=== PATIENT | female | born 1995 | race Hispanic/Latino ===

== ENCOUNTER 2025-04-19 16:18 | Emergency (ER) | payer BC ==
[~2025-04-19 16:18] MED LIST: Iopamidol 370 76% 100 ML VIAL ONE
[2025-04-19] MEDS ORDERED: Ondansetron PF 4 MG/2 ML Vial ONE ×2 (16:36→17:03)
[2025-04-19 16:47] LABS: #Basophils 0.1 thou/uL (0.0-0.2); #Eosinophils 0.2 thou/uL (0.0-0.7); #Lymphocytes 2.6 thou/uL (1.20-3.40); #Monocytes 0.6 thou/uL (0.11-0.59); #Neutrophils 7.6 thou/uL (1.40-6.50); %Basophils 1.0 % (0.0-1.0); %Eosinophils 1.7 % (0.0-10.0); %Lymphocytes 23.3 % (21.0-51.0); %Monocytes 5.1 % (0.0-10.0); %Neutrophils 69.0 % (42.0-75.0); Hematocrit 44.0 % (36.0-47.0); Hemoglobin 14.3 g/dL (12.0-16.0); Mean Corpuscular Hemoglobin 28.8 pg (27.0-31.0); Mean Corpuscular Volume 89.1 fl (78.0-98.0); Platelet Count 262 10x3/uL (130-400); Red Blood Cell (RBC) Count 4.94 mill/uL (4.20-5.40); White Blood Cell (WBC) Count 11.0 10x3/uL (4.8-10.8)
[2025-04-19 16:58] LABS: BHCG - Serum Negative (NEGATIVE); Pregs Control Background? CLEAR/WHITE (CLR/WHITE); Pregs Control Bar Appear? YES (CONTROL BAR)
[2025-04-19 17:02] LABS: ALT (SGPT) 39 U/L (Less than 34); AST (SGOT) 41 U/L (11-34); Albumin 4.3 g/dL (3.1-4.5); Alkaline Phosphatase 84 U/L (40-110); Anion Gap 20 mmol/L (10-20); BUN (Urea Nitrogen) 17 mg/dL (7.0-18.7); Bilirubin, Total 1.0 mg/dL (0.3-1.2); Calc. Creatinine Clearance 0 mL/min (70-130); Calcium 9.8 mg/dL (7.8-10.44); Carbon Dioxide 20 mmol/L (22-29); Chloride 107 mmol/L (98-107); Globulin 3.4 g/dL (2.4-3.5); Glucose 115 mg/dL (70-105); Lipase 17 U/L (8-78); Potassium 3.7 mmol/L (3.5-5.1); Sodium 143 mmol/L (136-145)
== END 2025-04-19 19:24 | disposition short-term general hospital (02) ==
LOC: MADERS 16:18
DX: R10.31 Right lower quadrant pain (principal); R11.2 Nausea with vomiting, unspecified
CPT/HCPCS: 74177; 80053; 83605; 83690; 84703; 85025; 96361; 96374; 96375; J2270; J2405; J3490; Q9967